=== PATIENT | male | born 1990 ===

== ENCOUNTER 2018-04-23 04:55 | Emergency (ER) | payer MEDICAID, OTHER ==
[2018-04-23 04:59] VITALS: BP 110/74
--- NOTE | 2018-04-23 05:16 | EDPHY ---
H & P Stated Complaint: med clear-R ankle pain Time Seen by Provider: 04/23/18 05:15 HPI/ROS: HPI CHIEF COMPLAINT: Medical clearance for correction. HISTORY OF PRESENT ILLNESS: Patient very pleasant 27-year-old male, otherwise healthy with no significant medical history except for seasonal allergies he presents emergency room medical clearance for correction. He was arrested on a hold warrant tonight. He is going to correction however prior to going to correction he noticed some redness to his right lateral ankle. He has no fever. He states been walking extensively as he has no significant transportation and developed some redness and swelling to the right lateral ankle. No fever. Denies any significant pain. Complains of itching. Past Medical History: Denies significant medical history Past Surgical History: Denies significant surgical history Social History: Denies daily use drugs alcohol tobacco. He is homeless. Works in a kitchen. Denies IV drug use. Family History: Noncontributory ROS REVIEW OF SYSTEMS: A comprehensive 10 point review of systems is otherwise negative aside from elements mentioned in the history of present illness. Exam Constitutional appears well nontoxic no acute distress, triage nursing summary reviewed, vital signs reviewed, awake/alert. Eyes normal conjunctivae and sclera, EOMI, PERRLA. HENT normal inspection, atraumatic, moist mucus membranes, no epistaxis, neck supple/ no meningismus, no raccoon eyes. Respiratory clear to auscultation bilaterally, normal breath sounds, no respiratory distress, no wheezing. Cardiovascular rate normal, regular rhythm, no murmur, no edema, distal pulses normal. Gastrointestinal soft, non-tender, no rebound, no guarding, normal bowel sounds, no distension, no pulsatile mass. Genitourinary no CVA tenderness. Musculoskeletal right lower extremity; neurovascular intact good distal pulse, good cap refill, mild swelling noted over the ankle the right leg. There is some mild erythema 3 cm x 4 cm area. No significant induration no significant abscess, nontender palpation. Very mildly warm. Otherwise neurovascular intact with good cap refill. no midline vertebral tenderness, full range of motion, no calf swelling, no tenderness of extremities, no meningismus, good pulses, neurovascularly intact. Patient's right ankle is neurovascular intact with full range of motion good flexion good extension able to bear weight. No significant pain. Skin pink, warm, & dry, no rash, skin atraumatic. Neurologic awake, alert and oriented x 3, AAOx3, moves all 4 extremities equally, motor intact, sensory intact, CN II-XII intact, normal cerebellar, normal vision, normal speech. Psychiatric normal mood/affect. Heme/Lymph/Immune no lymphadenopathy. Differential Diagnosis: Includes but is not limited to in a particular order right lower extremity cellulitis, allergic reaction, contact dermatitis, localized inflammation from walking Medical Decision Making: Plan for this patient this could be an early cellulitis I will give him his 1st dose of Keflex here in emergency room. Additionally take-home pack a Keflex and Keflex prescription. He understands keep his leg elevated, cool compresses, antibiotics as prescribed and return emergency room if there is worsening swelling pain or redness. Source: Patient, Police - Personal History Current Tetanus Diphtheria and Acellular Pertussis (TDAP): Yes - Medical/Surgical History Hx Asthma: No Hx Chronic Respiratory Disease: No Hx Diabetes: No Hx Cardiac Disease: No Hx Renal Disease: No Hx Cirrhosis: No Hx Alcoholism: No Hx HIV/AIDS: No Hx Splenectomy or Spleen Trauma: No Other PMH: denies - Social History Smoking Status: Current every day smoker Constitutional: Initial Vital Signs Temperature (C) 36.6 C 04/23/18 04:57 Heart Rate 84 04/23/18 04:57 Respiratory Rate 16 04/23/18 04:57 Blood Pressure 110/74 04/23/18 04:57 O2 Sat (%) 96 04/23/18 04:57 O2 Delivery Mode Room Air Allergies/Adverse Reactions: seasonal Allergy (Uncoded 04/23/18 04:57) Home Medications: Medication Instructions Recorded Cephalexin [Keflex] 500 mg PO Q6H #28 cap 04/23/18 Departure - Departure Disposition: Home, Routine, Self-Care Clinical Impression: Cellulitis Qualifiers: Site of cellulitis: extremity Site of cellulitis of extremity: lower extremity Laterality: right Qualified Code(s): L03.115 - Cellulitis of right lower limb Condition: Good Instructions: Cellulitis (ED) Additional Instructions: 1. You are medically cleared for correction. 2. Take her antibiotics as prescribed. 3. Keep urine leg elevated. 4. Return emergency room if you have worsening swelling pain fever worsening redness questions or concerns. Referrals: NONE *PRIMARY CARE P,. [Primary Care Provider] - As per Instructions Prescriptions: Cephalexin [Keflex] 500 mg PO Q6H #28 cap
[2018-04-23] MEDS ORDERED: CEPHALEXIN 500MG PREPACK#4 BTL TAKEHOME ONE (05:23)
[2018-04-23] MEDS ORDERED: CEPHALEXIN 500 MG CAP PO ONE (05:23)
== END 2018-04-23 05:28 | disposition home or self-care (01) ==
DX: L03.115 Cellulitis of right lower limb (principal); F17.200 Nicotine dependence, unspecified, uncomplicated

== ENCOUNTER 2018-04-29 03:53 | Emergency (ER) | payer MEDICAID ==
[2018-04-29] MEDS ORDERED: IBUPROFEN 600 MG TAB PO ONE (04:34)
[2018-04-29] MEDS ORDERED: CEPHALEXIN 500MG PREPACK#4 BTL TAKEHOME ONE (06:05)
[2018-04-29] MEDS ORDERED: CEPHALEXIN 500 MG CAP PO ONE (06:05)
--- NOTE | 2018-04-29 06:07 | EDPHY ---
H & P Stated Complaint: R foot cellulitis Time Seen by Provider: 04/29/18 05:28 HPI/ROS: HPI The patient presents with right foot redness and pain which has been present for the last several days. He was being treated in detention with Keflex for a right foot cellulitis. He thinks he received about 5 days of treatment. He was improving, however was discharged without the prescription. He now says his foot is slightly more red and painful. He does not have any fevers or chills. He has been walking quite a bit.. REVIEW OF SYSTEMS Constitutional: No fever, no chills. Eyes: No discharge. ENT: No sore throat. Cardiovascular: No chest pain, no palpitations. Respiratory: No cough, no shortness of breath. Gastrointestinal: No abdominal pain, no vomiting. Genitourinary: No hematuria. Musculoskeletal: No back pain. Skin: No rashes. Neurological: No headache. PMHx: Healthy Soc Hx: Homeless, uses tobacco PHYSICAL General Appearance: Alert, no distress Eyes: Pupils equal and round no pallor or injection ENT, Mouth: Mucous membranes moist Respiratory: There are no retractions, lungs are clear to auscultation Cardiovascular: Regular rate and rhythm Gastrointestinal: Abdomen is soft and non-tender, no masses, bowel sounds normal Neurological: A&O, moves all extremities Skin: Warm and dry, no rashes Musculoskeletal: Neck is supple non tender Extremities: Right foot is slightly erythematous, warm to palpation with no areas of fluctuance, is redness extends laterally to ankle and is non circumferential Psychiatric: Patient is oriented X 3, there is no agitation Source: Patient Exam Limitations: No limitations - Personal History Current Tetanus/Diphtheria Vaccine: Unsure Current Tetanus Diphtheria and Acellular Pertussis (TDAP): Unsure - Medical/Surgical History Hx Asthma: No Hx Chronic Respiratory Disease: No Hx Diabetes: No Hx Cardiac Disease: No Hx Renal Disease: No Hx Cirrhosis: No Hx Alcoholism: No Hx HIV/AIDS: No Hx Splenectomy or Spleen Trauma: No Other PMH: denies - Social History Smoking Status: Current every day smoker Constitutional: Initial Vital Signs Temperature (C) 36.4 C 04/29/18 03:54 Heart Rate 104 H 04/29/18 03:54 Respiratory Rate 16 04/29/18 03:54 Blood Pressure 128/71 H 04/29/18 03:54 O2 Sat (%) 95 04/29/18 03:54 O2 Delivery Mode Room Air Allergies/Adverse Reactions: seasonal Allergy (Uncoded 04/23/18 04:57) Home Medications: Medication Instructions Recorded Cephalexin [Keflex] 500 mg PO Q6H #28 cap 04/23/18 Cephalexin [Keflex (*)] 500 mg PO Q6H #28 cap 04/29/18 Medical Decision Making Differential Diagnosis: This is a 27-year-old homeless man with right foot cellulitis, being treated with Keflex in detention. When he left detention, he did not get the rest of his prescription to take home. Since then his foot has gotten slightly more red and painful. On exam, he has a clear cellulitis. I doubt DVT given no leg swelling. Given that he was demonstrating improvement with Keflex prescription previously I will give him a 2nd week of this. He will be discharged from the emergency department. - Data Points Medications Given: Discontinued Medications Cephalexin (Keflex 500 Mg Prepack#4) 1 btl TAKEHOME EDNOW ONE PRN Reason: Protocol Stop: 04/29/18 06:06 Last Admin: 04/29/18 06:13 Dose: 1 btl Cephalexin HCl (Keflex) 500 mg PO EDNOW ONE PRN Reason: Protocol Stop: 04/29/18 06:06 Last Admin: 04/29/18 06:12 Dose: 500 mg Ibuprofen (Motrin) 600 mg PO EDNOW ONE Stop: 04/29/18 04:35 Last Admin: 04/29/18 04:37 Dose: 600 mg Departure - Departure Disposition: Home, Routine, Self-Care Clinical Impression: Cellulitis of foot, right Condition: Good Instructions: Cellulitis (ED) Additional Instructions: Please return if you're foot gets worse in any way or if you develop a fever. Referrals: [facility],. [Clinic] - As per Instructions Prescriptions: Cephalexin [Keflex (*)] 500 mg PO Q6H #28 cap
[2018-04-29 06:22] VITALS: BP 125/76
== END 2018-04-29 06:41 | disposition home or self-care (01) ==
DX: L03.115 Cellulitis of right lower limb (principal); F17.200 Nicotine dependence, unspecified, uncomplicated